=== PATIENT | female | born 1965 | race Caucasian/White ===

== ENCOUNTER → 2017-06-19 | Outpatient (CLI) | payer MEDICARE, BC ==
[~2017-06-19] MED LIST: ADVIL200 MG OR; ARMOUR THYROID60 M1 PO; AVPAK AZITHROM250 MG PO; BACTRIM DS 8001 TA1 PO; BENZONATATE100 M1 PO; BIOTIN10000 MC1 PO; CARVEDILOL3.125 MG PO; CRESTOR40 MG PO; CYCLOBENZ5 MG PO; D3-55000 IU PO; DHEA 10 MG TAB1 EACH PO; DUEXIS 26.6 MG-1 TAB PO; ESCITALOPRAM20 MG NG; ESTER-C 1,0001 EACH PO; FINASTERIDE5 M1 PO; FIORICET1 CAP PO; HYDROCHLOROTH12.5 M1 PO; HYDROXYZINE HCL25 M1 PO; KAPIDEX60 MG PO; LANSOPRAZOLE30 MG PO; LEVAQUIN500 MG PO; LISINOPRIL/HCTZ1 TA3 PO; PROAIR HFA0.09 MG/AC IH; PROGESTERONE200 MG VA; RHINOCORT ALL8.43 ML NS; TRAZODONE100 MG PO; VENTOLIN H0.09 MG/Ac IH; ZOFRAN4 MG PO; ZYRTEC ALLERGY10 MG PO
[2017-06-19 17:43] LABS: HEMOGLOBIN 14.7 g/dL (12.2-16.2); LYMPH # 2.4 K/mm3 (0.7-4.5); LYMPH % 23.7 % (10-50.0)
[2017-06-19 21:22] LABS: BUN 25 mg/dL (7-18)
[2017-06-19 21:25] LABS: GFR (ESTIMATED) 43 ML/MIN (59-)
== END ==
LOC: LAB 17:12
PROVIDERS: Internal Medicine Adolescent Medicine
DX: G25.81 Restless legs syndrome (principal); E78.5 Hyperlipidemia, unspecified; E03.9 Hypothyroidism, unspecified; M25.512 Pain in left shoulder

== ENCOUNTER 2017-07-04 15:31 | Emergency (ER) | payer MEDICARE, BC ==
[~2017-07-04] VITALS: Ht 152.4 cm; Wt 82.1 kg
--- NOTE | 2017-07-04 16:02 | Emergency Room Report ---
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 pt states she was trying to get to her pcp office to be seen for what she thought was a sinus infection. 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 N Clinical Suspician of Infection? N Mental Status: 1 - Regular (Normal Baseline) Sepsis Risk:Low Sepsis Risk Have you (or family members/close friends) recently traveled outside the [place]? N If Yes, where/when: Have you had exposure to infectious disease within the past month? TB? Other? Specify: 52 years old white female with constipation problems she started an iron supplement last week by her primary care physician. She had no bowel movement for the last 4 days. After taking laxative and coffee she developed intense abdominal cramps became diaphoretic and dizzy and she is almost passed out. She was brought by her concerned family. She denies vomiting chest pain palpitations hematemesis coffee-ground emesis or bleeding per rectum. Source patient, RN notes reviewed, family Exam Limitations no limitations ALLERGIES Coded Allergies: meperidine (From DEMEROL) (Mild, 07/04/17) oxytetracycline (From TERRAMYCIN) (Mild, 07/04/17) penicillin G (Mild, 07/04/17) lorazepam (From ATIVAN) (HALLUCINATIONS 07/04/17) Home Medications Reported Medications Benzonatate 100 MG PO TIDP PRN COUGH Albuterol Sulfate (Ventolin Hfa) 2 PUFFS IH Q4HP PRN SHORTNESS OF BREATH Prasterone (Dhea)/Calcium Carb (Dhea 10 MG Tablet) 0.5 TAB PO DAILY Finasteride 2.5 MG PO DAILY CHOLECALCIFEROL (VITAMIN D3) (Vitamin D3) 5,000 UNITS PO DAILY PROGESTERONE,MICRONIZED (Progesterone) 400 MG VA QHS Cyclobenzaprine Hcl (Cyclobenzaprine) 5 MG PO TIDP PRN MUSCLE SPASM HYDROXYZINE HCL (Hydroxyzine HCl) 25 MG PO TIDP PRN ANXIETY BUTALB/ACETAMINOPHEN/CAFFEINE (Fioricet 50-300-40 MG Capsule) 1 CAP PO Q4HP PRN HEADACHE Thyroid ([place] Thyroid) 60 MG PO DAILY Dexlansoprazole (Dexilant) 60 MG PO DAILY #90 Rosuvastatin Calcium (Crestor) 40 MG PO QHS #90 Escitalopram Oxalate 20 MG NG DAILY #30 Lansoprazole (Lansoprazole) 30 MG PO DAILY Trazodone Hcl (Trazodone HCl) 100 MG PO QHS Carvedilol (Carvedilol 3.125MG) 3.125 MG PO BID Hydrochlorothiazide (Hydrochlorothiazide 12.5MG) 25 MG PO DAILY ONDANSETRON HCL (Zofran 4MG Tab) 4 MG PO PRN PRN N/ Ibuprofen (Advil) 200 MG OR PRN PRN PAIN Budesonide (Rhinocort Allergy) 8.43 ML NS PRN PRN ALLERGIES Albuterol Sulfate (Proair Hfa) 2 PUFF IH QID SULFAMETHOXAZOLE W/TRIMETHOPRI (Bactrim Ds Tab) 1 TABLET PO BID Cetirizine Hcl (Zyrtec) 10 MG PO DAILY Ascorbate Calcium/Bioflavonoid (Prachi-C 1,000 MG Tablet) 1 EACH PO DAILY Biotin 10,000 MCG PO DAILY IBUPROFEN/FAMOTIDINE (Duexis 800-26.6 MG Tablet) 1 TAB PO TID (Chastity DORAN,[facility]) History Medical History General CAD? No Angina: No IN: No Hypertension? Yes Hyperlipidemia? Yes CHF? No DVT? No PE? No COPD? No Asthma? No Anemia? Yes GERD? No Gastric ulcers? No GI Bleed? No Hernia? Yes Thyroid Problems? Yes Hypothyroidism? No CVA? No Seizures? No Diabetes? No Renal Insuffiency? No End Stage Renal Disease? No UTI? Yes Stones? No BPH? No GB Disease: Yes Nephritic Syndrome? No Asplenia? No Hepatitis? No Sickle Cell Disease? No Arthritis? Yes Migraines? No Cataracts? No Glaucoma? No MRSA? No HIV? No TB? No Anxiety? Yes Depression? Yes Cancer? No Site: MALIGNANT POLYP More? 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 Respiratory no symptoms reported Cardiovascular no symptoms reported Gastrointestinal see HPI, abdominal pain, constipation Genitourinary no symptoms reported. Musculoskeletal no symptoms reported Skin no symptoms reported Psychiatric/Neurological no symptoms reported (Chastity DORAN,Irma) Physical Exam Vital Signs Vital Signs Date Time Temp Pulse Resp B/P Pulse O2 O2 Flow FiO2 Ox Delivery Rate 07/04 2144 99.1 117 18 151/90 95 07/04 1920 115 20 133/98 97 07/04 1709 97.8 107 18 135/95 92 07/04 1546 98.0 95 18 129/85 99 - WBC >12,000 or <4,000 or 10% bands? 2 or more SIRS Criteria Met? B/P:129/85 MAP:99 Creatinine >2.0? UA output<0.5ml/kg/hr for 2 hrs? Platelet count >100,000? Lactate >2.0mmol/1? INR >1.2 or PTT > than 60 sec? Evidence of Organ Dysfunction? Provider documented clinical suspician of infection? N Sepsis Criteria Count: 1 Sepsis Risk: Low Sepsis Risk General Appearance normal appearance, WD/WN Eye Exam - bilateral eye normal exam, bilateral eye PERRL, bilateral eye EOMI Ear, Nose, Throat hearing grossly normal, normal ENT inspection Neck normal inspection, non-tender, supple, full range of motion Respiratory Status Yes: trachea midline, chest symmetrical, non tender chest. No: respiratory distress. Lung Sounds bilateral: normal breath sounds, lungs clear. 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 No Results/Orders Laboratory Tests 07/04/172035: Iron (send out) Pending, TIBC Pending, % Saturation Pending, Unsaturated IBC Pending 07/04/171919: Lactic Acid 2.3 H 07/04/17 191: Urine Color YELLOW, Urine Appearance CLEAR, Urine pH 6.0, Ur Specific [place] >= 1.030, Urine Protein 2+ H, Urine Ketones NEGATIVE, Urine Blood 2+ H, Urine Nitrate NEGATIVE, Urine Bilirubin NEGATIVE, Urine Urobilinogen 0.2, Ur Leukocyte Esterase NEGATIVE, Urine RBC 3-5, Urine WBC 3-5, Ur Squamous Epith Cells 3-5, Urine Bacteria 1+, Fine Granular Casts 5-10, Urine Glucose 1+ H 07/04/17 1605: Sodium 139, Potassium 2.3 *L, Chloride 98, Carbon Dioxide 28, BUN 28 H, Creatinine 2.1 H, Estimated Creat Clear 41 L, Estimated GFR (MDRD) 25 L, Glucose 147 H, Calcium 11.1 H, Total Bilirubin 0.6, AST 32, ALT 37, Alkaline Phosphatase 164 H, Creatine Kinase 86, CK-MB (CK-2) Rel Index 0.6, CK and CKMB Interp < 0.5, Troponin I < 0.02, Total Protein 9.6 H, Albumin 4.4, Globulin 5.2 H, Albumin/Globulin Ratio 0.8 L, WBC 14.5 H, RBC 5.94 H, Hgb 17.5 H, Hct 51.3 H, MCV 86.4, RDW 15.4, Plt Count 316, MPV 7.8, Gran % 82.2 H, Gran # 11.9 H, Lymphocytes % 12.2, Monocytes % 3.3, Eosinophils % 1.9, Basophils % 0.4, Lymphocytes # 1.8, Monocytes # 0.5, Eosinophils # 0.3, Basophils # 0.1, PUBS MCHC 34.1, MCH 29.5 Current Medication Orders Sig/Chris Start time Last Medication Dose Route Stop Time Status Admin Potassium Chloride 40 MEQ ONCE ONE 07/04 2200 AC PO 07/04 2201 Levofloxacin/Dextrose 150 ML .STK-MED ONE 07/04 1843 DC IV Levofloxacin/Dextrose 150 ML ONCE ONE 07/04 1830 DCr 07/04 IV 07/04 1959 1855 Sodium Chloride 1,000 ML .STK-MED ONE 07/04 1801 DC IV Ondansetron HCl 4 MG ONCE ONE 07/04 1645 DC 07/04 IV 07/04 1646 1648 Ondansetron HCl 0 .STK-MED ONE 07/04 1639 DC .ROUTE Sodium Chloride 10 ML PRN PRN 07/04 1600 AC IV 07/05 1552 Orders Procedure Date/time Status DIET-NOTHING BY MOUTH 07/04 D Active IRON & TIBC 07/044 Active LACTIC ACID FOLLOW UP 07/04 2000 Active CULTURE, BLOOD 07/04 1819 Active LACTIC ACID 07/[address] ABD & PELVIS W/O CONTRAST 07/04 1613 Active ELECTROCARDIOGRAM REQUEST 07/[address] ABD/PELVIS REQ 07/04 1552 Active IV SALINE LOCK 07/04 1552 Active URINALYSIS/COMPLETE 07/04 1552 Complete CBC WITH AUTO DIFF 07/04 1552 Complete CARDIAC ENZYMES 07/04 1552 Complete CHEM 12 PROFILE 07/04 1552 Complete 12 LEAD EKG-JESUS (INITIAL) 07/04 UNK Active CM/EKG CM/EKG EKG rate, NSR, rhythm, no ectopy, normal QRS, normal [place] Comments Normal sinus is 96/m, LEFT anterior fascicular block, no acute findings. (Chastity DORAN,[facility]) XRAY/CT/US XRAY/CT/US CT abdomen, pelvis CT interpretation by discussed w/radiologist Time results known: 2123 CT Results abnormal (nonspecific) (Breann DORAN,Zaire Delgadillo) Departure Departure Time of Disposition 1600 Clinical Impression Primary Impression: Constipation Secondary Impressions: Abdominal pain, Acute renal failure, Anemia, Hypercalcemia Condition STABLE Referrals Andrew Lee MD (Family) Additional Instructions THE PATIETN FELT BETTER AND DRANK HER CONTARST, SHE HAD [address] SCAN IS PENDING. I SIGNED HER OUT TO DR YANG WHO WILL CALL DR LEE TO DISCUSS HER DISPOSITION. DR. HAYWOOD Discharge Counseling Counseled pt/family regarding diagnosis, test results, medications/RX, home care, follow up needs ED Critical Care Critical Care No If Critical Care minutes are documented, the time involved in the performance of seperately reportable procedures was not counted toward critical care time documented. I directly delivered medical care to this critically ill and/or injured patient. Timely evaluation and treatment was necessary to address the significant organ system(s) dysfunction present in this patient. (Irma Haywood MD) Departure Disposition DC Home or Self Care(routine) Patient Instructions DI for Hypokalemia (Zaire Crain MD) at 2018 at 2152
--- NOTE | 2017-07-04 16:02 | Emergency Room Report ---
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 pt states she was trying to get to her pcp office to be seen for what she thought was a sinus infection. 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 N Clinical Suspician of Infection? N Mental Status: 1 - Regular (Normal Baseline) Sepsis Risk:Low Sepsis Risk Have you (or family members/close friends) recently traveled outside the [place]? N If Yes, where/when: Have you had exposure to infectious disease within the past month? TB? Other? Specify: 52 years old white female with constipation problems she started an iron supplement last week by her primary care physician. She had no bowel movement for the last 4 days. After taking laxative and coffee she developed intense abdominal cramps became diaphoretic and dizzy and she is almost passed out. She was brought by her concerned family. She denies vomiting chest pain palpitations hematemesis coffee-ground emesis or bleeding per rectum. Source patient, RN notes reviewed, family Exam Limitations no limitations ALLERGIES Coded Allergies: meperidine (From DEMEROL) (Mild, 07/04/17) oxytetracycline (From TERRAMYCIN) (Mild, 07/04/17) penicillin G (Mild, 07/04/17) lorazepam (From ATIVAN) (HALLUCINATIONS 07/04/17) Home Medications Reported Medications Benzonatate 100 MG PO TIDP PRN COUGH Albuterol Sulfate (Ventolin Hfa) 2 PUFFS IH Q4HP PRN SHORTNESS OF BREATH Prasterone (Dhea)/Calcium Carb (Dhea 10 MG Tablet) 0.5 TAB PO DAILY Finasteride 2.5 MG PO DAILY CHOLECALCIFEROL (VITAMIN D3) (Vitamin D3) 5,000 UNITS PO DAILY PROGESTERONE,MICRONIZED (Progesterone) 400 MG VA QHS Cyclobenzaprine Hcl (Cyclobenzaprine) 5 MG PO TIDP PRN MUSCLE SPASM HYDROXYZINE HCL (Hydroxyzine HCl) 25 MG PO TIDP PRN ANXIETY BUTALB/ACETAMINOPHEN/CAFFEINE (Fioricet 50-300-40 MG Capsule) 1 CAP PO Q4HP PRN HEADACHE Thyroid ([place] Thyroid) 60 MG PO DAILY Dexlansoprazole (Dexilant) 60 MG PO DAILY #90 Rosuvastatin Calcium (Crestor) 40 MG PO QHS #90 Escitalopram Oxalate 20 MG NG DAILY #30 Lansoprazole (Lansoprazole) 30 MG PO DAILY Trazodone Hcl (Trazodone HCl) 100 MG PO QHS Carvedilol (Carvedilol 3.125MG) 3.125 MG PO BID Hydrochlorothiazide (Hydrochlorothiazide 12.5MG) 25 MG PO DAILY ONDANSETRON HCL (Zofran 4MG Tab) 4 MG PO PRN PRN N/ Ibuprofen (Advil) 200 MG OR PRN PRN PAIN Budesonide (Rhinocort Allergy) 8.43 ML NS PRN PRN ALLERGIES Albuterol Sulfate (Proair Hfa) 2 PUFF IH QID SULFAMETHOXAZOLE W/TRIMETHOPRI (Bactrim Ds Tab) 1 TABLET PO BID Cetirizine Hcl (Zyrtec) 10 MG PO DAILY Ascorbate Calcium/Bioflavonoid (Prachi-C 1,000 MG Tablet) 1 EACH PO DAILY Biotin 10,000 MCG PO DAILY IBUPROFEN/FAMOTIDINE (Duexis 800-26.6 MG Tablet) 1 TAB PO TID (Chastity DORAN,[facility]) History Medical History General CAD? No Angina: No DC: No Hypertension? Yes Hyperlipidemia? Yes CHF? No DVT? No PE? No COPD? No Asthma? No Anemia? Yes GERD? No Gastric ulcers? No GI Bleed? No Hernia? Yes Thyroid Problems? Yes Hypothyroidism? No CVA? No Seizures? No Diabetes? No Renal Insuffiency? No End Stage Renal Disease? No UTI? Yes Stones? No BPH? No GB Disease: Yes Nephritic Syndrome? No Asplenia? No Hepatitis? No Sickle Cell Disease? No Arthritis? Yes Migraines? No Cataracts? No Glaucoma? No MRSA? No HIV? No TB? No Anxiety? Yes Depression? Yes Cancer? No Site: MALIGNANT POLYP More? Yes Additional hx: CHRONIC URI'S, PNEUMONIA, CHRONIC CYSTITIS, OSTEOARTHRITIS Immunization Hx DT/Tetanus 5-10 Years Ago Flu 2016-17FSN Pneumonia Received In Past Surgical Hx Previous Surgery?Y HYSTERECTOMY [place] NERVE STIMULATOR THREAD SPINNER Hx LMP N/A Family History Family Hx Diabetes No CAD Yes Hypertension Yes Hyperlipidemia Yes Cancer Yes TB No Social History Smoking Hx Smoker: Former Smoker Tobacco: No Type N/A Packs/day N/A Are you/the child exposed to second-hand smoke: No Alcohol Alcohol: No (Chastity DORAN,Irma) Review of Systems All Other Systems Reviewed and Negative Constitutional no symptoms reported Eyes no symptoms reported ENT no symptoms reported. Respiratory no symptoms reported Cardiovascular no symptoms reported Gastrointestinal see HPI, abdominal pain, constipation Genitourinary no symptoms reported. Musculoskeletal no symptoms reported Skin no symptoms reported Psychiatric/Neurological no symptoms reported (Chastity DORAN,Irma) Physical Exam Vital Signs Vital Signs Date Time Temp Pulse Resp B/P Pulse O2 O2 Flow FiO2 Ox Delivery Rate 07/04 2144 99.1 117 18 151/90 95 07/04 1920 115 20 133/98 97 07/04 1709 97.8 107 18 135/95 92 07/04 1546 98.0 95 18 129/85 99 - WBC >12,000 or <4,000 or 10% bands? 2 or more SIRS Criteria Met? B/P:129/85 MAP:99 Creatinine >2.0? UA output<0.5ml/kg/hr for 2 hrs? Platelet count >100,000? Lactate >2.0mmol/1? INR >1.2 or PTT > than 60 sec? Evidence of Organ Dysfunction? Provider documented clinical suspician of infection? N Sepsis Criteria Count: 1 Sepsis Risk: Low Sepsis Risk General Appearance normal appearance, WD/WN Eye Exam - bilateral eye normal exam, bilateral eye PERRL, bilateral eye EOMI Ear, Nose, Throat hearing grossly normal, normal ENT inspection Neck normal inspection, non-tender, supple, full range of motion Respiratory Status Yes: trachea midline, chest symmetrical, non tender chest. No: respiratory distress. Lung Sounds bilateral: normal breath sounds, lungs clear. 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 No Results/Orders Laboratory Tests 07/04/172035: Iron (send out) Pending, TIBC Pending, % Saturation Pending, Unsaturated IBC Pending 07/04/171919: Lactic Acid 2.3 H 07/04/17 191: Urine Color YELLOW, Urine Appearance CLEAR, Urine pH 6.0, Ur Specific [place] >= 1.030, Urine Protein 2+ H, Urine Ketones NEGATIVE, Urine Blood 2+ H, Urine Nitrate NEGATIVE, Urine Bilirubin NEGATIVE, Urine Urobilinogen 0.2, Ur Leukocyte Esterase NEGATIVE, Urine RBC 3-5, Urine WBC 3-5, Ur Squamous Epith Cells 3-5, Urine Bacteria 1+, Fine Granular Casts 5-10, Urine Glucose 1+ H 07/04/17 1605: Sodium 139, Potassium 2.3 *L, Chloride 98, Carbon Dioxide 28, BUN 28 H, Creatinine 2.1 H, Estimated Creat Clear 41 L, Estimated GFR (MDRD) 25 L, Glucose 147 H, Calcium 11.1 H, Total Bilirubin 0.6, AST 32, ALT 37, Alkaline Phosphatase 164 H, Creatine Kinase 86, CK-MB (CK-2) Rel Index 0.6, CK and CKMB Interp < 0.5, Troponin I < 0.02, Total Protein 9.6 H, Albumin 4.4, Globulin 5.2 H, Albumin/Globulin Ratio 0.8 L, WBC 14.5 H, RBC 5.94 H, Hgb 17.5 H, Hct 51.3 H, MCV 86.4, RDW 15.4, Plt Count 316, MPV 7.8, Gran % 82.2 H, Gran # 11.9 H, Lymphocytes % 12.2, Monocytes % 3.3, Eosinophils % 1.9, Basophils % 0.4, Lymphocytes # 1.8, Monocytes # 0.5, Eosinophils # 0.3, Basophils # 0.1, PUBS MCHC 34.1, MCH 29.5 Current Medication Orders Sig/Chris Start time Last Medication Dose Route Stop Time Status Admin Potassium Chloride 40 MEQ ONCE ONE 07/04 2200 AC PO 07/04 2201 Levofloxacin/Dextrose 150 ML .STK-MED ONE 07/04 1843 DC IV Levofloxacin/Dextrose 150 ML ONCE ONE 07/04 1830 DCr 07/04 IV 07/04 1959 1855 Sodium Chloride 1,000 ML .STK-MED ONE 07/04 1801 DC IV Ondansetron HCl 4 MG ONCE ONE 07/04 1645 DC 07/04 IV 07/04 1646 1648 Ondansetron HCl 0 .STK-MED ONE 07/04 1639 DC .ROUTE Sodium Chloride 10 ML PRN PRN 07/04 1600 AC IV 07/05 1552 Orders Procedure Date/time Status DIET-NOTHING BY MOUTH 07/04 D Active IRON & TIBC 07/044 Active LACTIC ACID FOLLOW UP 07/04 2000 Active CULTURE, BLOOD 07/04 1819 Active LACTIC ACID 07/[address] ABD & PELVIS W/O CONTRAST 07/04 1613 Active ELECTROCARDIOGRAM REQUEST 07/[address] ABD/PELVIS REQ 07/04 1552 Active IV SALINE LOCK 07/04 1552 Active URINALYSIS/COMPLETE 07/04 1552 Complete CBC WITH AUTO DIFF 07/04 1552 Complete CARDIAC ENZYMES 07/04 1552 Complete CHEM 12 PROFILE 07/04 1552 Complete 12 LEAD EKG-JESUS (INITIAL) 07/04 UNK Active CM/EKG CM/EKG EKG rate, NSR, rhythm, no ectopy, normal QRS, normal [place] Comments Normal sinus is 96/m, LEFT anterior fascicular block, no acute findings. (Chastity DORAN,[facility]) XRAY/CT/US XRAY/CT/US CT abdomen, pelvis CT interpretation by discussed w/radiologist Time results known: 2123 CT Results abnormal (nonspecific) (Breann DORAN,Zaire Delgadillo) Departure Departure Time of Disposition 1600 Clinical Impression Primary Impression: Constipation Secondary Impressions: Abdominal pain, Acute renal failure, Anemia, Hypercalcemia Condition STABLE Referrals Andrew Lee MD (Family) Additional Instructions THE PATIETN FELT BETTER AND DRANK HER CONTARST, SHE HAD [address] SCAN IS PENDING. I SIGNED HER OUT TO DR YANG WHO WILL CALL DR LEE TO DISCUSS HER DISPOSITION. DR. HAYWOOD Discharge Counseling Counseled pt/family regarding diagnosis, test results, medications/RX, home care, follow up needs ED Critical Care Critical Care No If Critical Care minutes are documented, the time involved in the performance of seperately reportable procedures was not counted toward critical care time documented. I directly delivered medical care to this critically ill and/or injured patient. Timely evaluation and treatment was necessary to address the significant organ system(s) dysfunction present in this patient. (Irma Haywood MD) Departure Disposition DC Home or Self Care(routine) Patient Instructions DI for Hypokalemia (Zaire Crain MD) at 2018 at 2152
[2017-07-04 16:14] LABS: LYMPH # 1.8 K/mm3 (0.7-4.5); LYMPH % 12.2 % (10-50.0)
[2017-07-04 16:17] LABS: HEMOGLOBIN 17.5 g/dL (12.2-16.2)
[2017-07-04 16:41] LABS: BUN 28 mg/dL (7-18)
[2017-07-04 16:43] LABS: GFR (ESTIMATED) 25 ML/MIN (59-)
--- NOTE | 2017-07-04 19:17 | RADIOLOGY REPORT PS360 ---
CHEST-PORTABLE HISTORY: NEAR SYNCOPE ORDERING PHYSICIAN: Irma Haywood MD PATIENT AGE: 52 years COMPARISON: 08/15/2016 FINDINGS: The cardiomediastinal silhouette and pulmonary vascularity are within normal limits. The lungs are clear without infiltrates, suspicious nodules, or pleural effusions. No acute bony abnormalities. There is an epidural stimulator device present with leads projecting toward the cervical region. A calcified granuloma is present in the right lower lobe. Minimal atelectatic changes are present in the left lung base. IMPRESSION: No acute finding
[2017-07-04 19:23] LABS: URINE BILIRUBIN - DIPSTICK NEGATIVE (NEG); URINE BLOOD 2+ (NEG)
[2017-07-04 22:24] VITALS: BP 151/90
--- NOTE | 2017-07-05 06:25 | RADIOLOGY REPORT PS360 ---
CT ABD PELVIS W/O CONTRAST CLINICAL INDICATION: Abdominal pain ABD DISCOMFORT, POSSIBLE BOWEL IMPATION ORDERING PHYSICIAN: Irma Haywood MD PATIENT AGE: 52 years COMPARISON: 01/29/2017 TECHNIQUE: Axial images obtained with sagittal and coronal reformats. PROCEDURE: Oral Contrast: None IV Contrast: None . FINDINGS: There are atelectatic changes in the lung bases. No focal liver lesion evident. Prior cholecystectomy without biliary dilatation. The spleen, adrenal glands, and pancreas have an unremarkable unenhanced CT appearance. A 3 mm nonobstructing stone is present in the lower pole the left kidney. No ureteral calculi, hydronephrosis, or urinary bladder calculi evident. History is given of prior appendectomy. No evidence of intestinal obstruction or free air. There are are some fluid-filled loops of large bowel in the ascending and transverse colon. No acute bony anomalies. There is an intrathecal device present extending toward the thoracic region. IMPRESSION: 1. Nonobstructing left nephrolithiasis. 2. No acute abdominal or pelvic findings.
[2017-07-06 08:38] LABS: Iron 47 ug/dL (27-159); Iron Saturation 13 % (15-55); UIBC 310 ug/dL (131-425)
== END 2017-07-04 22:24 | disposition home or self-care (01) ==
LOC: ER 15:31
PROVIDERS: Emergency Medicine
DX: K59.00 Constipation, unspecified (principal); N17.9 Acute kidney failure, unspecified; E83.52 Hypercalcemia; R10.9 Unspecified abdominal pain; D64.9 Anemia, unspecified; Z87.891 Personal history of nicotine dependence; I10 Essential (primary) hypertension; E07.9 Disorder of thyroid, unspecified; E78.5 Hyperlipidemia, unspecified; Z79.899 Other long term (current) drug therapy
CPT/HCPCS: J2405

== ENCOUNTER → 2017-07-15 | Outpatient (CLI) | payer MEDICARE, BC ==
[2017-07-15 12:56] LABS: BUN 21 mg/dL (7-18)
[2017-07-15 12:58] LABS: GFR (ESTIMATED) 58 ML/MIN (59-)
== END ==
LOC: LAB 11:47
PROVIDERS: Internal Medicine Adolescent Medicine
DX: N17.9 Acute kidney failure, unspecified (principal)

== ENCOUNTER → 2017-09-27 | Outpatient (CLI) | payer MEDICARE, BC ==
[2017-09-27 11:10] LABS: HEMOGLOBIN 15.1 g/dL (12.2-16.2); LYMPH # 2.3 K/mm3 (0.7-4.5); LYMPH % 25.6 % (10-50.0)
[2017-09-27 15:55] LABS: BUN 22 mg/dL (7-18)
[2017-09-27 16:09] LABS: GFR (ESTIMATED) 43 ML/MIN (59-)
== END ==
LOC: LAB 10:55
PROVIDERS: Internal Medicine Adolescent Medicine
DX: E78.5 Hyperlipidemia, unspecified (principal); E03.9 Hypothyroidism, unspecified; D50.9 Iron deficiency anemia, unspecified